=== PATIENT | female | born 1960 ===

== ENCOUNTER 2017-03-25 17:30 | Inpatient (IN) | payer OTHER ==
[2017-03-25 17:35] VITALS: BMI 24.4
[2017-03-25 18:04] LABS: HEMATOCRIT 35.3 % (36.0-48.0); MEAN CELL VOLUME 88.7 fl (80.0-105.0); MEAN CORPUSCULAR HEMOGLOBIN 29.9 pg (25.0-35.0); MEAN CORPUSCULAR HGB CONC 33.7 g/dl (31.0-37.0); MEAN PLATELET VOLUME 9.5 fl (7.0-11.0); PLATELET COUNT 289 10^3/uL (120.0-450.0); RED CELL DISTRIBUTION WIDTH 13.3 % (11.5-14.5); WHITE BLOOD COUNT 7.1 10^3/ul (4.5-11.0)
[2017-03-25 18:15] LABS: ALB/GLOB RATIO 1.4 (1.1-1.8); ALKALINE PHOSPHATASE 98 U/L (38-133); ALT/SGPT 36 U/L (7-56); AST/SGOT 30 U/L (15-39); BILIRUBIN,TOTAL 0.4 mg/dL (0.2-1.3); BLOOD UREA NITROGEN 19 mg/dL (7-21); CALCIUM 9.2 mg/dL (8.4-10.5); CARBON DIOXIDE 27 mmol/L (21-33); CHLORIDE 108 mmol/L (98-107); GFR AFRICAN-AMERICAN > 60; GLUCOSE,RANDOM 102 mg/dL (70-110); POTASSIUM 4.2 mmol/L (3.6-5.0); SODIUM 145 mmol/L (132-148)
[2017-03-25 18:26] LABS: TROPONIN I < 0.01 ng/mL
--- NOTE | 2017-03-25 18:32 | ED PDOC ---
Arrival/HPI - General Chief Complaint: Palpitations Time Seen by Provider: 03/25/17 17:32 Historian: Patient - History of Present Illness Narrative History of Present Illness (Text): 03/25/17 18:28 56-year-old female with a history of hypertension presents today with anterior chest pain and palpitations. Patient states she has been taking her blood pressure medication but her blood pressure has been high today. Patient states she also has been having headaches for many years but has been worsening recently. No medications have been taken for pain today. She denies abdominal pain. She is complaining of nausea no vomiting. Patient also states that she has diarrhea but only when she eats cheese or milk. She denies urinary symptoms. Denies back pain. Denies fevers or chills. Patient describes a sensation of racing heart as well as depression anterior chest. She is also complaining of pain to the hands bilaterally. Time/Duration: Other (this morning) Symptom Onset: Gradual Symptom Course: Worsening Quality: Pressure, Throbbing Severity Level: 4 Past Medical History - Provider Review Nursing Documentation Reviewed: Yes - Travel History Have you recently traveled outside [place] w/in the past 3 mons?: No - Infectious Disease Hx of Infectious Diseases: None - Tetanus Immunization Tetanus Immunization: Unknown - Cardiac Hx Hypertension: Yes - Psychiatric Hx Substance Use: No - Surgical History Hx Section: Yes (x2) - Anesthesia Hx Anesthesia: Yes Hx Anesthesia Reactions: No Hx Malignant Hyperthermia: No Family/Social History - Physician Review Nursing Documentation Reviewed: Yes Family/Social History: Unknown Family HX Smoking Status: Never Smoked Hx Alcohol Use: No Hx Substance Use: No Allergies/Home Meds Allergies/Adverse Reactions: Allergies No Known Allergies Allergy (Verified 03/25/17 17:35) Home Medications: Home Meds Medication Instructions Recorded Confirmed Losartan [Cozaar] 1 tab PO DAILY 03/25/17 03/25/17 Review of Systems - Review of Systems Constitutional: absent: Fatigue, Fevers Eyes: absent: Vision Changes, Photophobia, Eye Pain ENT: absent: Sinus Congestion Respiratory: absent: SOB, Cough Cardiovascular: Chest Pain, Palpitations. absent: Orthopnea, Syncope Gastrointestinal: Diarrhea, Nausea. absent: Abdominal Pain, Constipation, Vomiting Genitourinary Female: absent: Dysuria, Frequency Musculoskeletal: absent: Arthralgias, Back Pain, Neck Pain Skin: absent: Rash, Pruritis Neurological: Headache. absent: Dizziness, Focal Weakness, Gait Changes Psychiatric: absent: Anxiety, Depression, Suicidal Ideation Physical Exam Vital Signs Reviewed: Yes Vital Signs Temp Pulse Resp BP Pulse Ox 03/25/17 19:11 89 18 158/79 H 100 03/25/17 17:38 98.6 F 93 H 22 161/87 H 100 Temperature: Afebrile Blood Pressure: Hypertensive Pulse: Regular Respiratory Rate: Normal Appearance: Positive for: Well-Appearing, Non-Toxic, Comfortable Pain Distress: None Mental Status: Positive for: Alert and Oriented X 3 - Systems Exam Head: Present: Atraumatic Pupils: Present: PERRL Extroacular Muscles: Present: EOMI Conjunctiva: Present: Normal Mouth: Present: Moist Mucous Membranes Neck: Present: Normal Range of Motion, Trachea Midline. No: Meningeal Signs, MIDLINE TENDERNESS, Paraspinal Tenderness Respiratory/Chest: Present: Clear to Auscultation, Good Air Exchange. No: Respiratory Distress, Accessory Muscle Use Cardiovascular: Present: Regular Rate and Rhythm, Normal S1, S2. No: Tachycardic, Muffled Abdomen: No: Tenderness, Distention, Rebound, Guarding Upper Extremity: Present: Normal ROM Lower Extremity: Present: Normal ROM Neurological: Present: GCS=15, Speech Normal Skin: Present: Warm, Dry, Normal Color. No: Rashes Psychiatric: Present: Alert, Oriented x 3 Medical Decision Making ED Course and Treatment: 03/25/17 18:32 pt with chest pain and palpitations. Patient with headaches for many years. History of hypertension. Blood pressure is elevated in the emergency room. Patient nontoxic well-appearing no distress with stable vital signs cbc; wnl cmp; wnl trop: wnl dimer; wnl bnp; wnl ekg; normal sinus rhythm at 94 bpm normal axis normal intervals no ST elevations cxr: wnl zofran given for nausea tylenol given for headache. CT head; FINDINGS: HEMORRHAGE: No acute parenchymal, subarachnoid or extra-axial hemorrhage. BRAIN: There may be some minimal chronic periventricular white matter ischemic changes. Mild central volume loss. VENTRICLES: No obstructive hydrocephalus CALVARIUM: No acute calvarial fractures. PARANASAL SINUSES: Visualized paranasal sinuses are well-developed and currently well-aerated. MASTOID AIR CELLS: Unremarkable as visualized. No inflammatory changes. OTHER FINDINGS: None. IMPRESSION: No acute intracranial hemorrhage. Suspect minimal chronic white matter ischemic changes. Mild central volume loss. asa po pt reassessment; pt feeling slightly better; headache improved; denies palpitations or sob currently. case discussed with Dr. euceda; will Admit observational status to Tele for chest pain r/o acs. impression; chest pain Admit observational status to tele - Lab Interpretations Lab Results: 03/25/17 18:01 03/25/17 18:01 Lab Results 03/25/17 19:08: Urine Color Yellow, Urine Appearance Clear, Urine pH 7.0, Ur Specific [place] 1.020, Urine Protein Negative, Urine Glucose (UA) Negative, Urine Ketones Negative, Urine Blood Negative, Urine Nitrate Negative, Urine Bilirubin Negative, Urine Urobilinogen 0.2, Ur Leukocyte Esterase Negative 03/25/17 18:01: D-Dimer, Quantitative 0.25 03/25/17 18:01: NT-Pro-B Natriuret Pep 35.0 03/25/17 18:01: Sodium 145, Potassium 4.2, Chloride 108 H, Carbon Dioxide 27, Anion Gap 14, BUN 19, Creatinine 0.6, Est GFR ( Amer) > 60, Est GFR (Non- Af Amer) > 60, Random Glucose 102, Calcium 9.2, Total Bilirubin 0.4, AST 30, ALT 36, Alkaline Phosphatase 98, Lactate Dehydrogenase 561, Total Creatine Kinase 203, Troponin I < 0.01, Total Protein 7.0, Albumin 4.1, Globulin 2.9, Albumin/Globulin Ratio 1.4 03/25/17 18:01: WBC 7.1, RBC 3.98, Hgb 11.9 L, Hct 35.3 L, MCV 88.7, MCH 29.9, MCHC 33.7, RDW 13.3, Plt Count 289, MPV 9.5, Neutrophils % (Manual) 40 L, Lymphocytes % (Manual) 53 H, Atypical Lymphs % 1 H, Monocytes % (Manual) 6 - RAD Interpretation Radiology Orders: 03/25/17 17:57 CHEST PORTABLE [RAD] Stat 03/25/17 18:04 HEAD W/O CONTRAST [CT] Stat - Medication Orders Current Medication Orders: Discontinued Medications Acetaminophen (Tylenol 325mg Tab) 650 mg PO STAT STA Stop: 03/25/17 18:31 Last Admin: 03/25/17 19:02 Dose: 650 mg Ondansetron HCl (Zofran Inj) 4 mg IVP STAT STA Stop: 03/25/17 18:31 Last Admin: 03/25/17 19:02 Dose: 4 mg Disposition/Present on Arrival - Present on Arrival Any Indicators Present on Arrival: No History of DVT/PE: No History of Uncontrolled Diabetes: No Urinary Catheter: No History of Decub. Ulcer: No History Surgical Site Infection Following: None - Disposition Have Diagnosis and Disposition been Completed?: Yes Diagnosis: Chest pain, Palpitations, Hypertension Disposition: HOSPITALIZED Disposition Time: 20:35 Patient Plan: Observation Patient Problems: Current Active Problems Problem Status Onset Chest pain Acute Hypertension Acute Palpitations Acute Condition: FAIR Discharge Instructions (ExitCare): Chest Pain (ED) Forms: [facility] (Khmer)
[2017-03-25 18:36] LABS: ATYPICAL LYMPHOCYTE 1 % (0.0-0.0); NEUTROPHIL 40 % (50.0-70.0)
--- NOTE | 2017-03-25 18:57 | CT ---
PROCEDURE: CT scan of the brain dated 03/25/2017. HISTORY: Headache COMPARISON: None available. TECHNIQUE: Axial computed tomography images were obtained through the head/brain without intravenous contrast. Radiation dose: Total exam DLP = 725.84 mGy-cm. This CT exam was performed using one or more of the following dose reduction techniques: Automated exposure control, adjustment of the mA and/or kV according to patient size, and/or use of iterative reconstruction technique. FINDINGS: HEMORRHAGE: No acute parenchymal, subarachnoid or extra-axial hemorrhage. BRAIN: There may be some minimal chronic periventricular white matter ischemic changes. Mild central volume loss. VENTRICLES: No obstructive hydrocephalus CALVARIUM: No acute calvarial fractures. PARANASAL SINUSES: Visualized paranasal sinuses are well-developed and currently well-aerated. MASTOID AIR CELLS: Unremarkable as visualized. No inflammatory changes. OTHER FINDINGS: None. IMPRESSION: No acute intracranial hemorrhage. Suspect minimal chronic white matter ischemic changes. Mild central volume loss.
[2017-03-25 19:27] LABS: URINE BILIRUBIN NEGATIVE (NEGATIVE); URINE BLOOD NEGATIVE (NEGATIVE); URINE GLUCOSE (UA) NEGATIVE (NEGATIVE); URINE KETONE NEGATIVE (NEGATIVE); URINE LEUKOCYTE ESTERASE NEGATIVE Leu/uL (NEGATIVE); URINE PROTEIN NEGATIVE mg/dL (<30 mg/dL); URINE UROBILINOGEN 0.2 E.U./dL (<1 E.U./dL)
[2017-03-25 19:28] LABS: URINE APPEARANCE CLEAR (CLEAR); URINE COLOR YELLOW (YELLOW)
[2017-03-25 22:32] LABS: CHOLESTEROL 183 mg/dL (130-200)
--- NOTE | 2017-03-25 22:50 | CP.PCM.HP ---
Addendum entered and electronically signed by Nafisa Prajapati DO 03/25/17 23:48 : D-Dimer was negative Original Note: <Nafisa Prajapati - Last Filed: 03/25/17 23:34> History of Present Illness - History of Present Illness History of Present Illness: Nafisa Prajapati DO, PGY-1, Hospitalist Service, Dr. Roldan CC: chest pain, headache, left arm and left leg paresthesias HPI: 56 year old, Yoruba speaking female with a past medical history significant for hypertension and migraines as young girl who presents with complaints of a headache, chest pain, left arm and left leg paresthesias. At 1: 30 PM today Mrs. Tierra Parkinson was at [employer], reading, when she developed sudden, sharp mid sternal chest pain, SOB, blurry vision that lasted for 1-3 seconds. She further states that these symptoms were accompanied by a headache and pins and needles feeling in both her left arm and left leg. She also admits to nausea. She states has had headaches in the past, with associated left arm numbness and blurry vision, but never left leg numbness. The headache is still present during my encounter with her, the chest pain absent. She had not taken anything for any of her symptoms, but states the medications given the ED - aspirin, tylenol, and zofran- helped with her headache. On further questioning she states she has been getting chest pain with associated shortness of breath in the past month, and attributes this to poor blood pressure control with the Losartan 50 mg. She does not have a medical doctor, and gets her blood pressure medicine mailed in from [facility]. 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 She is a member of [employer]. [employer] del[employer]/bakery associate was utilized during this encounter: Krystina Keith [id number] Present on Admission - Present on Admission Any Indicators Present on Admission: No Review of Systems - Constitutional Constitutional: Headache. absent: Weight Loss, Weakness - EENT Eyes: Blurred Vision. absent: Discharge, Itchy Eyes, Requires Corrective Lenses Nose/Mouth/Throat: absent: Bleeding Gums, Dry Mouth, Dysphagia - Cardiovascular Cardiovascular: Chest Pain. absent: Leg Edema, Palpitations, Pedal Edema - Respiratory Respiratory: absent: Cough, Hemoptysis, Pain on Inspiration - Gastrointestinal Gastrointestinal: absent: Change in Stool Character, Dyspepsia, Excessive Flatus - Genitourinary Genitourinary: absent: Difficulty Urinating, Nocturia, Urinary Hesitance - Reproductive: Female Reproductive:Female: Menses Variable, Cycle > 4 Weeks Between Past Patient History - Infectious Disease Hx of Infectious Diseases: None - Tetanus Immunizations Tetanus Immunization: Unknown - Past Social History Smoking Status: Never Smoked - CARDIAC Hx Hypertension: Yes - PSYCHIATRIC Hx Substance Use: No - SURGICAL HISTORY Hx Section: Yes (x2) - ANESTHESIA Hx Anesthesia: Yes Hx Anesthesia Reactions: No Hx Malignant Hyperthermia: No Meds Allergies/Adverse Reactions: Allergies Allergy/AdvReac Type Severity Reaction Status Date / Time No Known Allergies Allergy Verified 03/25/17 17:35 Physical Exam - Constitutional Appears: Well, No Acute Distress - Head Exam Head Exam: ATRAUMATIC, NORMOCEPHALIC - Eye Exam Eye Exam: EOMI, Normal appearance, PERRL - ENT Exam ENT Exam: Mucous Membranes Moist, Normal Oropharynx Additional comments: Uvula and tongue midline, without fasciculation; posterior pharynx is with erythema or exudate - Neck Exam Neck exam: Positive for: Normal Inspection. Negative for: Meningismus, Tenderness - Respiratory Exam Respiratory Exam: absent: Accessory Muscle Use Additional comments: Crackles heard throughout right lung field - Cardiovascular Exam Cardiovascular Exam: RRR, +S1, +S2 Additional comments: extra beats auscultated (ectopy), no clicks, gallops, or murmurs appreciated - GI/Abdominal Exam GI & Abdominal Exam: Normal Bowel Sounds, Soft. absent: Rebound, Rigid - Extremities Exam Extremities exam: Positive for: normal capillary refill, normal inspection, pedal pulses present Additional comments: trace LE edema - Back Exam Back exam: NORMAL INSPECTION. absent: CVA tenderness (L), CVA tenderness (R) - Neurological Exam Neurological exam: Alert, CN II-XII Intact, Oriented x3 Additional comments: MSR testing in UE and LE graded 5/5, sensation is symmetric in face and body - Psychiatric Exam Psychiatric exam: Normal Affect, Normal Mood - Skin Skin Exam: Dry, Intact, Normal Color, Warm Results - Vital Signs Recent Vital Signs: Last Vital Signs Temp 98.6 F 03/25/17 17:38 Pulse 69 03/25/17 22:03 Resp 18 03/25/17 22:03 BP 149/62 03/25/17 22:03 Pulse Ox 99 03/25/17 22:03 - Labs Result Diagrams: 03/25/17 18:01 03/25/17 18:01 Labs: Laboratory Results - last 24 hr 03/25/17 03/25/17 03/25/17 18:01 18:01 18:01 WBC 7.1 RBC 3.98 Hgb 11.9 L Hct 35.3 L MCV 88.7 MCH 29.9 MCHC 33.7 RDW 13.3 Plt Count 289 MPV 9.5 Neutrophils % (Manual) 40 L Lymphocytes % (Manual) 53 H Atypical Lymphs % 1 H Monocytes % (Manual) 6 D-Dimer, Quantitative Sodium 145 Potassium 4.2 Chloride 108 H Carbon Dioxide 27 Anion Gap 14 BUN 19 Creatinine 0.6 Est GFR ( Amer) > 60 Est GFR (Non-Af Amer) > 60 Random Glucose 102 Calcium 9.2 Total Bilirubin 0.4 AST 30 ALT 36 Alkaline Phosphatase 98 Lactate Dehydrogenase 561 Total Creatine Kinase 203 Troponin I < 0.01 NT-Pro-B Natriuret Pep 35.0 Total Protein 7.0 Albumin 4.1 Globulin 2.9 Albumin/Globulin Ratio 1.4 Urine Color Urine Appearance Urine pH Ur Specific [place] Urine Protein Urine Glucose (UA) Urine Ketones Urine Blood Urine Nitrate Urine Bilirubin Urine Urobilinogen Ur Leukocyte Esterase 03/25/17 03/25/17 18:01 19:08 WBC RBC Hgb Hct MCV MCH MCHC RDW Plt Count MPV Neutrophils % (Manual) Lymphocytes % (Manual) Atypical Lymphs % Monocytes % (Manual) D-Dimer, Quantitative 0.25 Sodium Potassium Chloride Carbon Dioxide Anion Gap BUN Creatinine Est GFR ( Amer) Est GFR (Non-Af Amer) Random Glucose Calcium Total Bilirubin AST ALT Alkaline Phosphatase Lactate Dehydrogenase Total Creatine Kinase Troponin I NT-Pro-B Natriuret Pep Total Protein Albumin Globulin Albumin/Globulin Ratio Urine Color Yellow Urine Appearance Clear Urine pH 7.0 Ur Specific [place] 1.020 Urine Protein Negative Urine Glucose (UA) Negative Urine Ketones Negative Urine Blood Negative Urine Nitrate Negative Urine Bilirubin Negative Urine Urobilinogen 0.2 Ur Leukocyte Esterase Negative - EKG Data EKG Interpreted by: Myself EKG shows normal: Sinus rhythm Rate: Normal Assessment & Plan - Assessment and Plan (Free Text) Assessment: 56 year old female with a past medical history significant for hypertension and migraines who presents with CP, SOB, ROSENBAUM, left arm, left leg paresthesias. Plan: 1) CP R/O ACS - Initial EKG normal, will repeat one in AM - Initial troponin (-), will follow x 2 - Pro-BNP wnl - Initial CXR had poor quality, lending to poor interpretation. Patient is mobile, in no acute distress, thus ordered chest x-ray PA/lateral, will f/u - Cardiology consulted - TSH, HbA1c, lipid panel ordered - HHD - Vitals q4h 2) Headache with left arm and left leg paresthesia - CT head w/o contrast showed no acute intracranial hemorrhage. Suspect minimal chronic white matter ischemic changes. - ROSENBAUM could be secondary to poor control of blood pressure or a classic migraine given the patient's history of migraines in the past, concomitant nausea, transient blurry vision, and left sided paresthesias - Neurology consulted - Neurochecks PRN 3) Hypertension - Patient states BP is not well controlled on home Losartan 50 mg PO - Trial of 40 mg Inderal could be considered for hypertension that may also help with Headache. Case discussed with attending Dr. Roldan - Date & Time Date: 03/25/17 Time: 23:40 <Nano Roldan - Last Filed: 03/25/17 23:57> Results - Vital Signs Recent Vital Signs: Last Vital Signs Temp 97.7 F 03/25/17 23:08 Pulse 63 03/25/17 23:08 Resp 20 03/25/17 23:08 BP 142/90 03/25/17 23:08 Pulse Ox 99 03/25/17 22:03 - Labs Result Diagrams: 03/25/17 18:01 03/25/17 18:01 Attending/Attestation - Attestation I have personally seen and examined this patient.: Yes I have fully participated in the care of the patient.: Yes I have reviewed all pertinent clinical information: Yes Notes (Text): 03/25/17 23:56 Agree with history , physical examination, assessment and plan. Patient was seen in room # 787-84, nurse Lizbet helped me interpret. Following impressions should be recorded. Chest pain. Palpitations. Migraine. Left leg numbness. Hypertension. Borderline anemia. Lymphocytosis. Obesity. History C section. History bladder suspension procedure? Family history uterine cancer. Family history heart disease.
[2017-03-25] MEDS ORDERED: Pneumococcal 23-Valent Vaccine IM ONE (23:50)
[2017-03-26 00:55] VITALS: RESP 20
[2017-03-26] MEDS: Pantoprazole 40 mg EC Tab PO SCH (05:35)
--- NOTE | 2017-03-26 07:53 | RAD ---
HISTORY: cp COMPARISON: No prior. FINDINGS: LUNGS: No active pulmonary disease. PLEURA: No significant pleural effusion identified, no pneumothorax apparent. CARDIOVASCULAR: Normal. OSSEOUS STRUCTURES: No significant abnormalities. VISUALIZED UPPER ABDOMEN: Normal. OTHER FINDINGS: None. IMPRESSION: No active disease.
--- NOTE | 2017-03-26 10:39 | CP.PCM.CON ---
<Lucas Cuello - Last Filed: 03/26/17 10:51> History of Present Illness - History of Present Illness History of Present Illness: Neurology Consult Note for Dr. Brown Reason for Consult: Left arm and leg paresthesias, headache 56 y/o F with PMH of HTN and migraines presents to the ED for acute onset of chest pain along with left arm and leg paresthesias. Patient is pashto speaking. Pt states she suddenly began to feel left arm and leg paresthesias. Along with these symptoms, patient also began to develop chest pain, SOB, and blurry vision. Patient has had similar episodes in the past when having migraine like symptoms. She states she has been getting them frequently since she was a young girl. She currently does not take any medication for her migraines. Currently, patient states she has her same symptoms, but they are improved from the previous day. Denies SOB, N/V/D, fever, chills, changes in vision, dysuria, palpitations, weakness. PMH: Hypertension and Migraines PSH: 2 C-sections FMH: HTN Social Hx: Denies tobacco, alcohol, or illicit drug use Medications: Losartan Allergies: NKDA Review of Systems - Review of Systems Review of Systems: 13 point review of systems as per HPI, otherwise negative. Past Patient History - Infectious Disease Hx of Infectious Diseases: None - Tetanus Immunizations Tetanus Immunization: Unknown - Past Social History Smoking Status: Never Smoked - CARDIAC Hx Hypertension: Yes - PULMONARY Hx Respiratory Disorders: No - NEUROLOGICAL Hx Neurological Disorder: Yes Hx Migraine: Yes - HEENT Hx HEENT Problems: No - RENAL Hx Chronic Kidney Disease: No - ENDOCRINE/METABOLIC Hx Endocrine Disorders: No - HEMATOLOGICAL/ONCOLOGICAL Hx Blood Disorders: No - INTEGUMENTARY Hx Dermatological Problems: No - MUSCULOSKELETAL/RHEUMATOLOGICAL Hx Musculoskeletal Disorders: No Hx Falls: Yes - GASTROINTESTINAL Hx Gastrointestinal Disorders: No - GENITOURINARY/GYNECOLOGICAL Hx Genitourinary Disorders: No - PSYCHIATRIC Hx Substance Use: No - SURGICAL HISTORY Hx Section: Yes (x2) - ANESTHESIA Hx Anesthesia: Yes Hx Anesthesia Reactions: No Hx Malignant Hyperthermia: No Meds Allergies/Adverse Reactions: Allergies Allergy/AdvReac Type Severity Reaction Status Date / Time No Known Allergies Allergy Verified 03/25/17 17:35 - Medications Medications: Current Medications Acetaminophen (Tylenol 325mg Tab) 650 mg PO Q6H PRN PRN Reason: Headache Last Admin: 03/26/17 09:27 Dose: 650 mg Pantoprazole Sodium (Protonix Ec Tab) 40 mg PO 0600 YOLANDA Last Admin: 03/26/17 05:35 Dose: 40 mg Physical Exam - Constitutional Appears: Non-toxic, No Acute Distress - Head Exam Head Exam: ATRAUMATIC, NORMAL INSPECTION, NORMOCEPHALIC - Eye Exam Eye Exam: EOMI - ENT Exam ENT Exam: Mucous Membranes Moist - Respiratory Exam Respiratory Exam: Clear to Auscultation Bilateral, NORMAL BREATHING PATTERN. absent: Rales, Rhonchi, Wheezes - Cardiovascular Exam Cardiovascular Exam: RRR, +S1, +S2 - GI/Abdominal Exam GI & Abdominal Exam: Normal Bowel Sounds, Soft. absent: Tenderness - Extremities Exam Extremities exam: Negative for: calf tenderness, pedal edema - Neurological Exam Neurological exam: Alert, CN II-XII Intact, Oriented x3 Additional comments: Sensation intact throughout all extremities Muscle strength 5/5 in all extremities No pronator drift - Psychiatric Exam Psychiatric exam: Normal Affect, Normal Mood - Skin Skin Exam: Intact, Normal Color, Warm Results - Vital Signs Recent Vital Signs: Last Vital Signs Temp 97.9 F 03/26/17 05:55 Pulse 63 03/26/17 05:55 Resp 20 03/26/17 05:55 BP 155/91 H 03/26/17 05:55 Pulse Ox 98 03/26/17 05:55 - Labs Result Diagrams: 03/25/17 18:01 03/25/17 18:01 Labs: Laboratory Results - last 24 hr 03/26/17 02:15 Troponin I < 0.01 Assessment & Plan - Assessment and Plan (Free Text) Plan: 56 y/o F with PMH of HTN and migraines presents with complicated migraine in the setting of HTN. Patient does not consistently take any medication for her headaches but will be placed on new regimen to help control symptoms. In addition, patient will placed on migraine regimen to help control symptoms. Patient is neurologically stable at this time, will sign off. Plan: Topamax 25 mg qhs Fiorcet 1 tab q6h for acute onset of symptoms Gabapentin 100 mg qhs Maintain SBP 130-140 Khushboo, PGY-2 <Aubrey Brown - Last Filed: 03/26/17 14:07> Meds - Medications Medications: Current Medications Acetaminophen (Tylenol 325mg Tab) 650 mg PO Q6H PRN PRN Reason: Headache Last Admin: 03/26/17 09:27 Dose: 650 mg Acetaminophen/Butalbital/Caffeine (Fioricet) 1 tab PO Q4H PRN PRN Reason: Headache Last Admin: 03/26/17 11:19 Dose: 1 tab Enoxaparin Sodium (Lovenox) 40 mg SC DAILY YOLANDA PRN Reason: Protocol Gabapentin (Neurontin) 100 mg PO HS YOLANDA PRN Reason: Protocol Pantoprazole Sodium (Protonix Ec Tab) 40 mg PO 0600 YOLANDA Last Admin: 03/26/17 05:35 Dose: 40 mg Topiramate (Topamax) 25 mg PO HS YOLANDA PRN Reason: Protocol Results - Vital Signs Recent Vital Signs: Last Vital Signs Temp 97.9 F 03/26/17 12:00 Pulse 65 03/26/17 12:00 Resp 20 03/26/17 12:00 BP 135/80 03/26/17 12:00 Pulse Ox 98 03/26/17 05:55 - Labs Result Diagrams: 03/25/17 18:01 03/25/17 18:01 Labs: Laboratory Results - last 24 hr 03/26/17 03/26/17 03/26/17 02:15 11:49 11:49 D-Dimer, Quantitative 0.24 Troponin I < 0.01 < 0.01 Attending/Attestation - Attestation I have personally seen and examined this patient.: Yes I have fully participated in the care of the patient.: Yes I have reviewed all pertinent clinical information: Yes
[2017-03-26] MEDS ORDERED: Apap-Butalbital-Caffeine 325-50-40mg Tab PO PRN (11:02)
[2017-03-26] MEDS: Enoxaparin 40 mg Syringe SC SCH (14:36)
--- NOTE | 2017-03-26 16:02 | CP.PCM.PN ---
<Rosa Devlin - Last Filed: 03/26/17 16:20> Subjective - Date & Time of Evaluation Date of Evaluation: 03/26/17 Time of Evaluation: 07:35 - Subjective Subjective: Rosa Devlin DO, PGY-1, Internal Medicine, Hospitalist Service Patient seen and examined at bedside. Per nursing no acute events overnight. Patient reports still having a headache. Chest pain has improved but still there. Also complaining of L leg pain. Denies any dizziness, visual changes, palpitations, sob, abdominal pain, urinary symptoms. Objective - Vital Signs/Intake and Output Vital Signs (last 24 hours): Temp Pulse Resp BP Pulse Ox 97.9 F 75 20 135/80 98 03/26/17 12:00 03/26/17 14:00 03/26/17 12:00 03/26/17 12:00 03/26/17 05:55 - Medications Medications: Current Medications Acetaminophen (Tylenol 325mg Tab) 650 mg PO Q6H PRN PRN Reason: Headache Last Admin: 03/26/17 09:27 Dose: 650 mg Acetaminophen/Butalbital/Caffeine (Fioricet) 1 tab PO Q4H PRN PRN Reason: Headache Last Admin: 03/26/17 11:19 Dose: 1 tab Enoxaparin Sodium (Lovenox) 40 mg SC DAILY YOLANDA PRN Reason: Protocol Last Admin: 03/26/17 14:36 Dose: Not Given Gabapentin (Neurontin) 100 mg PO HS YOLANDA PRN Reason: Protocol Pantoprazole Sodium (Protonix Ec Tab) 40 mg PO 0600 YOLANDA Last Admin: 03/26/17 05:35 Dose: 40 mg Topiramate (Topamax) 25 mg PO HS YOLANDA PRN Reason: Protocol - Constitutional Appears: Well, No Acute Distress - Head Exam Head Exam: ATRAUMATIC, NORMAL INSPECTION - Eye Exam Eye Exam: EOMI, Normal appearance Pupil Exam: NORMAL ACCOMODATION - ENT Exam ENT Exam: Mucous Membranes Moist - Neck Exam Neck Exam: Tenderness Additional comments: Paraspinal tenderness - Respiratory Exam Respiratory Exam: Clear to Ausculation Bilateral, NORMAL BREATHING PATTERN. absent: Rales, Rhonchi, Wheezes - Cardiovascular Exam Cardiovascular Exam: REGULAR RHYTHM, +S1, +S2. absent: Diastolic murmur, JVD, Murmur - GI/Abdominal Exam GI & Abdominal Exam: Soft, Tenderness, Normal Bowel Sounds. absent: Guarding, Rigid - Rectal Exam Rectal Exam: Deferred - Extremities Exam Additional comments: Straight leg raise negative - Back Exam Back Exam: NORMAL INSPECTION - Neurological Exam Neurological Exam: Alert, Awake, Normal Gait, Oriented x3 - Psychiatric Exam Psychiatric exam: Normal Affect, Normal Mood - Skin Skin Exam: Dry, Normal Color, Warm Assessment and Plan - Assessment and Plan (Free Text) Assessment: 56 year old female with a past medical history significant for hypertension and migraines who presents with Chest pain, Headache, left arm, left leg paresthesias. Plan: 1) Chest Pain R/O ACS - Stable, afebrile - Monitor on telemetry - EKG NSR x 2 - Troponins negative x 3 - D Dimer negative - Echo ordered - Cardiology consulted, f/u recommendations 2) Headache with left arm and left leg paresthesia - CT head w/o contrast showed no acute intracranial hemorrhage. Suspect minimal chronic white matter ischemic changes. - Will start Topamax 25mg QHS, Fiorcet - Will start Gabapentin 100mg QHS - Neurology consulted, f/u recommendations 3) Hypertension - Patient states BP is not well controlled on home Losartan 50 mg PO - Will continue to monitor at this time as patient is currently normatensive 4) Left Leg pain -Patient with hypertonic muscles in LLE, straight leg raise negative -Leg pain likely musculoskeletal -Spent 15 minutes demonstrating stretching techniques -Flexeril 5mg TID 5) GI/DVT ppx -Protonix -Lovenox <Uriel Leary - Last Filed: 03/27/17 08:02> Objective - Vital Signs/Intake and Output Vital Signs (last 24 hours): Temp Pulse Resp BP Pulse Ox 97.5 F L 72 20 106/65 97 03/27/17 06:00 03/27/17 06:00 03/27/17 06:00 03/27/17 06:00 03/27/17 06:00 Intake and Output: 03/27/17 03/27/17 06:59 18:59 Intake Total 0 Output Total 0 Balance 0 - Medications Medications: Current Medications Acetaminophen/Butalbital/Caffeine (Fioricet) 1 tab PO Q4H PRN PRN Reason: Headache Last Admin: 03/26/17 11:19 Dose: 1 tab Cyclobenzaprine HCl (Flexeril) 5 mg PO TID [facility] Last Admin: 03/26/17 17:19 Dose: 5 mg Enoxaparin Sodium (Lovenox) 40 mg SC DAILY YOLANDA PRN Reason: Protocol Last Admin: 03/26/17 14:36 Dose: Not Given Gabapentin (Neurontin) 100 mg PO HS YOLANDA PRN Reason: Protocol Last Admin: 03/26/17 21:52 Dose: 100 mg Pantoprazole Sodium (Protonix Ec Tab) 40 mg PO 0600 YOLANDA Last Admin: 03/27/17 06:03 Dose: 40 mg Topiramate (Topamax) 25 mg PO HS YOLANDA PRN Reason: Protocol Last Admin: 03/26/17 21:53 Dose: 25 mg Attending/Attestation - Attestation I have personally seen and examined this patient.: Yes I have fully participated in the care of the patient.: Yes I have reviewed all pertinent clinical information, including history, physical exam and plan: Yes Notes (Text): I have seen and examined patient at bedside. Briefly this is 56 year old female with history of HTN, migraines who came for evaluation of chest pain, headache, left arm and left leg parasthesias. Chest pain has now resolved. Patient appears anxious. Serial cardiac enzymes and EKG is within normal limits. D dimer negative. Echo and LE US still pending. CT head showed minimal chronic white matter ischemic changes. Neuro consult appreciated. Start topamax and gabapentin. Upon discharge patient will follow up with PMD of choice. Dr Uriel Leary
--- NOTE | 2017-03-26 17:45 | CARD ---
APPROVED REPORT EXAM: Two-dimensional and M-mode echocardiogram with Doppler and color Doppler. INDICATION Chest Pain Palpitations 2D DIMENSIONS Left Atrium (2D)3.9 (1.6-4.0cm)IVSd0.9 (0.7-1.1cm) LVDd4.1 (3.9-5.9cm)PWd1.1 (0.7-1.1cm) LVDs2.7 (2.5-4.0cm)FS (%) 35.1 % LVEF (%)64.9 (>50%) M-Mode DIMENSIONS Aortic Root2.90 (2.2-3.7cm)Aortic Cusp Exc.1.40 (1.5-2.0cm) Aortic Valve AoV Peak Nuwxempk291.0cm/Freya Peak GR.10mmHg Mitral Valve MV E Wmcqvfzb207.0cm/sMV A Lkqoshkd03.0cm/sE/A ratio1.3 TDI Lateral E' Peak V9.16cm/sMedial E' Peak V8.09cm/sE/Lateral E'10.9 E/Medial E'12.4 Pulmonary Valve PV Peak Imrqmual45.3cm/sPV Peak Grad.1mmHg Tricuspid Valve TR Peak Tbbqevfi916hm/sRAP AIWXXTHL46tkVcEI Peak Gr.32mmHg [id number] LEFT VENTRICLE The left ventricle is normal size. There is normal left ventricular wall thickness. The left ventricular function is normal. The left ventricular ejection fraction is within the normal range. There is normal LV segmental wall motion. The left ventricular diastolic function is normal. RIGHT VENTRICLE The right ventricle is normal size. There is normal right ventricular wall thickness. The right ventricular systolic function is normal. ATRIA The left atrium size is normal. The right atrium size is normal. AORTIC VALVE The aortic valve is normal in structure. No aortic regurgitation is present. There is no aortic valvular stenosis. MITRAL VALVE The mitral valve is normal in structure. There is no mitral valve regurgitation noted. TRICUSPID VALVE There is mild tricuspid regurgitation. There is mild pulmonary hypertension. GREAT VESSELS The aortic root is normal in size. PERICARDIAL EFFUSION There is no pericardial effusion. <Conclusion> The left ventricle is normal size. There is normal left ventricular wall thickness. The left ventricular function is normal. The left ventricular ejection fraction is within the normal range. There is normal LV segmental wall motion. There is mild tricuspid regurgitation. There is mild pulmonary hypertension.
--- NOTE | 2017-03-26 18:32 | US ---
HISTORY: Leg pain and swelling. Evaluate for DVT PHYSICIAN(S): Luis Manuel Fam MD. TECHNIQUE: Duplex sonography and color-flow Doppler with graded compression were used to evaluate the deep venous systems of both lower extremities. FINDINGS: The visualized deep venous systems of both lower extremities are sonographically normal and compressible. Normal wave forms and augmentation are seen. There is no sonographic evidence for deep venous thrombosis in the visualized segments of both lower extremities. IMPRESSION: No sonographic evidence for deep venous thrombosis in the visualized segments of both lower extremities.
--- NOTE | 2017-03-26 19:56 | CARD ---
APPROVED REPORT EKG Measurement Heart [id number] <Conclusion> Normal sinus rhythm Normal ECG
--- NOTE | 2017-03-26 20:05 | CARD ---
APPROVED REPORT EKG Measurement Heart [id number] <Conclusion> Normal sinus rhythm Normal ECG
--- NOTE | 2017-03-26 22:10 | CON ---
REASON FOR CONSULTATION: Palpitation. HISTORY OF PRESENT ILLNESS: The patient is 56-year-old female originally from [facility] who has a history of hypertension and was taking blood pressure medications from [facility] for the past 2 years. The patient does not recall the name of the medicine but she takes 50 mg. She presents because of palpitation and dizziness as well as left shoulder pain radiating to the chest. The patient is unaware of any prior cardiac history or thyroid problem. The patient did report some pain and numbness in the left leg. SOCIAL HISTORY: The patient is a nonsmoker, nondrinker. MEDICATIONS: Fioricet 1 tablet q.4 hours, Neurontin 100 mg at bedtime, Protonix 40 mg p.o. once a day, Topamax 25 mg at bedtime. PHYSICAL EXAMINATION: GENERAL: The patient is a middle-aged female who does not appear to be in any distress. VITAL SIGNS: Blood pressure 155/91, heart rate 63, temperature 97.9, respirations 20. HEENT: Normocephalic. CHEST: Clear. HEART: S1 and S2 regular. ABDOMEN: Soft. EXTREMITIES: No edema. LABORATORY DATA: Hemoglobin and hematocrit 11.9 and 35.3, white count and platelet count are within normal limits. SMA-7 is within normal limits except for chloride of 108. Two sets of troponins are negative. Triglycerides are elevated at 358. Total cholesterol, LDL and HDL cholesterol are within normal limit. TSH is within normal limit. D-dimer is within normal limits twice. EKG revealed normal sinus. Head CT scan without contrast, no acute intracranial abnormality. ASSESSMENT: 1. Chest pain, myocardial infraction is ruled out. 2. History of palpitation. TSH level is within normal limits. 3. Hypertension. RECOMMENDATIONS: Continue current Protonix, gabapentin, Topamax, Fioricet and p.r.n. Tylenol. Start Lovenox at 30 mg once a day. Obtain venous Doppler lower extremities. Obtain an echocardiogram. Sandor Morton MD
[2017-03-27] MEDS: Pantoprazole 40 mg EC Tab PO SCH (06:03)
[2017-03-27 06:29] VITALS: O2SAT 97
[2017-03-27 07:48] LABS: HEMATOCRIT 39.2 % (36.0-48.0); MEAN CELL VOLUME 87.7 fl (80.0-105.0); MEAN CORPUSCULAR HEMOGLOBIN 29.1 pg (25.0-35.0); MEAN CORPUSCULAR HGB CONC 33.2 g/dl (31.0-37.0); MEAN PLATELET VOLUME 9.4 fl (7.0-11.0); RED CELL DISTRIBUTION WIDTH 12.9 % (11.5-14.5); WHITE BLOOD COUNT 6.7 10^3/ul (4.5-11.0)
[2017-03-27 08:05] LABS: BLOOD UREA NITROGEN 14 mg/dL (7-21); CALCIUM 9.2 mg/dL (8.4-10.5); CARBON DIOXIDE 29 mmol/L (21-33); CHLORIDE 104 mmol/L (98-107); GFR AFRICAN-AMERICAN > 60; GLUCOSE,RANDOM 93 mg/dL (70-110); POTASSIUM 5.2 mmol/L (3.6-5.0); SODIUM 143 mmol/L (132-148)
[2017-03-27] MEDS: Enoxaparin 40 mg Syringe SC SCH (10:30)
--- NOTE | 2017-03-27 11:34 | CP.PCM.PN ---
<Lucas Cuello - Last Filed: 03/27/17 11:30> Subjective - Date & Time of Evaluation Date of Evaluation: 03/27/17 Time of Evaluation: 11:30 - Subjective Subjective: Neurology Progress Note for Dr. Brown Pt seen and examined at bedside. Pt doing well overnight with no acute events. Patient still complaints of left sided pain along with mild headache. Denies CP , SOB, N/V/D, syncope, lightheadedness. Objective - Vital Signs/Intake and Output Vital Signs (last 24 hours): Temp Pulse Resp BP Pulse Ox 97.5 F L 72 20 106/65 97 03/27/17 06:00 03/27/17 06:00 03/27/17 06:00 03/27/17 06:00 03/27/17 06:00 Intake and Output: 03/27/17 03/27/17 06:59 18:59 Intake Total 0 Output Total 0 Balance 0 - Medications Medications: Current Medications Acetaminophen/Butalbital/Caffeine (Fioricet) 1 tab PO Q4H PRN PRN Reason: Headache Last Admin: 03/26/17 11:19 Dose: 1 tab Cyclobenzaprine HCl (Flexeril) 5 mg PO TID [facility] Last Admin: 03/27/17 10:30 Dose: 5 mg Enoxaparin Sodium (Lovenox) 40 mg SC DAILY YOLANDA PRN Reason: Protocol Last Admin: 03/27/17 10:30 Dose: 40 mg Gabapentin (Neurontin) 100 mg PO HS YOLANDA PRN Reason: Protocol Last Admin: 03/26/17 21:52 Dose: 100 mg Pantoprazole Sodium (Protonix Ec Tab) 40 mg PO 0600 YOLANDA Last Admin: 03/27/17 06:03 Dose: 40 mg Topiramate (Topamax) 25 mg PO HS YOLANDA PRN Reason: Protocol Last Admin: 03/26/17 21:53 Dose: 25 mg - Labs Labs: 03/27/17 07:30 03/27/17 07:30 - Constitutional Appears: Non-toxic, No Acute Distress - Head Exam Head Exam: ATRAUMATIC, NORMAL INSPECTION, NORMOCEPHALIC - ENT Exam ENT Exam: Mucous Membranes Moist - Respiratory Exam Respiratory Exam: Clear to Ausculation Bilateral, NORMAL BREATHING PATTERN. absent: Rales, Rhonchi, Wheezes - Cardiovascular Exam Cardiovascular Exam: RRR, +S1, +S2 - GI/Abdominal Exam GI & Abdominal Exam: Soft, Normal Bowel Sounds. absent: Tenderness - Extremities Exam Extremities Exam: Normal Inspection - Neurological Exam Neurological Exam: Alert, Awake, Oriented x3 Neuro motor strength exam: Left Upper Extremity: 5, Right Upper Extremity: 5, Left Lower Extremity: 5, Right Lower Extremity: 5 - Psychiatric Exam Psychiatric exam: Normal Affect, Normal Mood - Skin Skin Exam: Intact, Normal Color, Warm Assessment and Plan - Assessment and Plan (Free Text) Plan: 56 y/o F with PMH of HTN and migraines presents with complicated migraine in the setting of HTN. Patient had Topamax and Fiorcet added to regimen yesterday. Patient will need to control BP in which will help alleviate headaches. Patient can follow up in outpatient neurology clinic for headaches. Patient is neurologically stable at this time, will sign off. Plan: Continue Topamax 25 mg qhs Continue Fiorcet 1 tab q6h for acute onset of symptoms Continue Gabapentin 100 mg qhs Maintain SBP 130-140 Follow up in outpatient neurology clinic within 1 month [facility] PGY-2 <Aubrey Brown - Last Filed: 03/31/17 11:04> Objective - Vital Signs/Intake and Output Vital Signs (last 24 hours): Temp Pulse Resp BP Pulse Ox 98.3 F 71 20 152/89 H 97 03/27/17 18:00 03/27/17 18:00 03/27/17 18:00 03/27/17 18:00 03/27/17 06:00 - Labs Labs: 03/27/17 07:30 03/27/17 07:30 Attending/Attestation - Attestation I have personally seen and examined this patient.: Yes I have fully participated in the care of the patient.: Yes I have reviewed all pertinent clinical information, including history, physical exam and plan: Yes
--- NOTE | 2017-03-27 15:36 | CP.PCM.DIS ---
<Rosa Devlin - Last Filed: 03/27/17 16:27> Provider - Provider Date of Admission: 03/26/17 14:51 Attending physician: Uriel Leary MD Consults: Cardiology: Praveen Neurology: Stephanie Time Spent in preparation of Discharge (in minutes): 32 Hospital Course - Lab Results Lab Results: Most Recent Lab Values WBC 6.7 10^3/ul (4.5-11.0) 03/27/17 07:30 RBC 4.47 10^6/uL (3.5-6.1) 03/27/17 07:30 Hgb 13.0 g/dL (12.0-16.0) 03/27/17 07:30 Hct 39.2 % (36.0-48.0) 03/27/17 07:30 MCV 87.7 fl (80.0-105.0) 03/27/17 07:30 MCH 29.1 pg (25.0-35.0) 03/27/17 07:30 MCHC 33.2 g/dl (31.0-37.0) 03/27/17 07:30 RDW 12.9 % (11.5-14.5) 03/27/17 07:30 Plt Count 301 10^3/uL (120.0-450.0) 03/27/17 07:30 MPV 9.4 fl (7.0-11.0) 03/27/17 07:30 Neutrophils % (Manual) 40 % (50.0-70.0) L 03/25/17 18:01 Lymphocytes % (Manual) 53 % (22.0-35.0) H 03/25/17 18:01 Atypical Lymphs % 1 % (0.0-0.0) H 03/25/17 18:01 Monocytes % (Manual) 6 % (1.0-6.0) 03/25/17 18:01 D-Dimer, Quantitative 0.24 mg/L FEU (0-0.50) 03/26/17 11:49 Sodium 143 mmol/L (132-148) 03/27/17 07:30 Potassium 5.2 mmol/L (3.6-5.0) H 03/27/17 07:30 Chloride 104 mmol/L (98-107) 03/27/17 07:30 Carbon Dioxide 29 mmol/L (21-33) 03/27/17 07:30 Anion Gap 15 (10-20) 03/27/17 07:30 BUN 14 mg/dL (7-21) 03/27/17 07:30 Creatinine 0.7 mg/dL (0.5-1.4) 03/27/17 07:30 Est GFR ( Amer) > 60 03/27/17 07:30 Est GFR (Non-Af Amer) > 60 03/27/17 07:30 Random Glucose 93 mg/dL (70-110) 03/27/17 07:30 Hemoglobin A1c 5.4 % (4.2-6.5) 03/25/17 18:01 Calcium 9.2 mg/dL (8.4-10.5) 03/27/17 07:30 Total Bilirubin 0.4 mg/dL (0.2-1.3) 03/25/17 18:01 AST 30 U/L (15-39) 03/25/17 18:01 ALT 36 U/L (7-56) 03/25/17 18:01 Alkaline Phosphatase 98 U/L (38-133) 03/25/17 18:01 Lactate Dehydrogenase 561 U/L (333-699) 03/25/17 18:01 Total Creatine Kinase 203 U/L (35-230) 03/25/17 18:01 Troponin I < 0.01 ng/mL 03/26/17 11:49 NT-Pro-B Natriuret Pep 35.0 pg/mL (0-450) 03/25/17 18:01 Total Protein 7.0 g/dL (5.8-8.3) 03/25/17 18:01 Albumin 4.1 g/dL (3.0-4.8) 03/25/17 18:01 Globulin 2.9 gm/dL 03/25/17 18:01 Albumin/Globulin Ratio 1.4 (1.1-1.8) 03/25/17 18:01 Triglycerides 358 mg/dL (35-160) H 03/25/17 18:01 Cholesterol 183 mg/dL (130-200) 03/25/17 18:01 LDL Cholesterol Direct 100 mg/dL (0-129) 03/25/17 18:01 HDL Cholesterol 39 mg/dL (29-60) 03/25/17 18:01 TSH 3rd Generation 1.17 mIU/mL (0.46-4.68) 03/25/17 18:01 Urine Color Yellow (YELLOW) 03/25/17 19:08 Urine Appearance Clear (CLEAR) 03/25/17 19:08 Urine pH 7.0 (4.7-8.0) 03/25/17 19:08 Ur Specific [place] 1.020 (1.005-1.035) 03/25/17 19:08 Urine Protein Negative mg/dL (<30 mg/dL) 03/25/17 19:08 Urine Glucose (UA) Negative mg/dL (NEGATIVE) 03/25/17 19:08 Urine Ketones Negative mg/dL (NEGATIVE) 03/25/17 19:08 Urine Blood Negative (NEGATIVE) 03/25/17 19:08 Urine Nitrate Negative (NEGATIVE) 03/25/17 19:08 Urine Bilirubin Negative (NEGATIVE) 03/25/17 19:08 Urine Urobilinogen 0.2 E.U./dL (<1 E.U./dL) 03/25/17 19:08 Ur Leukocyte Esterase Negative Thanh/uL (NEGATIVE) 03/25/17 19:08 - Hospital Course Hospital Course: 56 year old, [place]ovan speaking female with a past medical history significant for hypertension and migraines as young girl who presents with complaints of a headache, chest pain, left arm and left leg paresthesias. At 1:30 PM today Mrs. Tierra Parkinson was at [employer], reading, when she developed sudden, sharp mid sternal chest pain, SOB, blurry vision that lasted for 1-3 seconds. She further states that these symptoms were accompanied by a headache and pins and needles feeling in both her left arm and left leg. She also admits to nausea. She states has had headaches in the past, with associated left arm numbness and blurry vision, but never left leg numbness. The headache is still present during my encounter with her, the chest pain absent. She had not taken anything for any of her symptoms, but states the medications given the ED - aspirin, tylenol, and zofran- helped with her headache. On further questioning she states she has been getting chest pain with associated shortness of breath in the past month. Patient was admitted and monitored on telemetry. EKG showed NSR x 2. Troponins were negative x 3. Echo was performed and was normal. Cardiology was consulted and on the case. ACS was ruled out. Patient was complaining of headaches with left leg pain. Head CT showed no acute intracranial pathology. Neurology was consulted and on the case. Started the patient on Fiorecet, Gabapentin and Topamax. Patient instructed to follow up with Neurology clinic within 1 month. Leg pain likely musculoskeletal, patient was started on Flexeril. Spent 20 minutes showing the patient different stretching techniques that would help alleviate symptoms, instructed to continue these stretches at home. For elevated triglycerides, patient instructed to modify diet and exercise. On day of discharge, patient was complaining of dizziness and headache. Carotid dopplers were ordered, final read pending. Flexeril was discontinued. Patient was also evaluated by physical therapy. Patient symptoms improved. Prescription for motrin was given for pain. Patient was medically stable on day of discharge. Instructed to follow up with PMD within 1 week. All questions and concerns were addressed. Discharge Exam - Head Exam Head Exam: ATRAUMATIC, NORMAL INSPECTION, NORMOCEPHALIC - Eye Exam Eye Exam: EOMI, Normal appearance Pupil Exam: NORMAL ACCOMODATION - ENT Exam ENT Exam: Mucous Membranes Moist - Neck Exam Neck exam: Full Rom - Respiratory Exam Respiratory Exam: Clear to PA & Lateral, NORMAL BREATHING PATTERN, UNREMARKABLE. absent: Rales, Rhonchi, Wheezes - Cardiovascular Exam Cardiovascular Exam: REGULAR RHYTHM, +S1, +S2. absent: Systolic Murmur - GI/Abdominal Exam GI & Abdominal Exam: Normal Bowel Sounds, Soft. absent: Guarding, Rebound, Rigid, Tenderness - Extremities Exam Extremities exam: normal inspection, pedal pulses present - Back Exam Back exam: NORMAL INSPECTION - Neurological Exam Neurological exam: Alert, CN II-XII Intact, Oriented x3 - Psychiatric Exam Psychiatric exam: Normal Affect, Normal Mood - Skin Skin Exam: Dry, Normal Color, Warm Discharge Plan - Discharge Medications Prescriptions: Acetaminophen/Butalbital/Caf [Fioricet] 1 tab PO Q4H PRN #12 tab PRN Reason: Headache Gabapentin [Neurontin] 100 mg PO HS #12 cap Ibuprofen [Motrin] 600 mg PO Q6H PRN #12 tab PRN Reason: Pain, Moderate (4-7) Topiramate [Topamax] 25 mg PO HS #12 tab - Follow Up Plan Condition: FAIR Disposition: HOME/ ROUTINE Instructions: Chest Pain (DC), Migraine Headache (DC) Additional Instructions: Patient is clear for discharge home. Patient to continue medications as prescribed. Motrin prn pain. Instructed to follow up with PMD within 1 week. Follow up with Neurology clinic within 1 month. For elevated triglycerides, patient should modify diet and exercise. <Uriel Leary - Last Filed: 03/28/17 10:22> Provider - Provider Date of Admission: 03/26/17 14:51 Attending physician: Uriel Leary MD Hospital Course - Lab Results Lab Results: Most Recent Lab Values WBC 6.7 10^3/ul (4.5-11.0) 03/27/17 07:30 RBC 4.47 10^6/uL (3.5-6.1) 03/27/17 07:30 Hgb 13.0 g/dL (12.0-16.0) 03/27/17 07:30 Hct 39.2 % (36.0-48.0) 03/27/17 07:30 MCV 87.7 fl (80.0-105.0) 03/27/17 07:30 MCH 29.1 pg (25.0-35.0) 03/27/17 07:30 MCHC 33.2 g/dl (31.0-37.0) 03/27/17 07:30 RDW 12.9 % (11.5-14.5) 03/27/17 07:30 Plt Count 301 10^3/uL (120.0-450.0) 03/27/17 07:30 MPV 9.4 fl (7.0-11.0) 03/27/17 07:30 Neutrophils % (Manual) 40 % (50.0-70.0) L 03/25/17 18:01 Lymphocytes % (Manual) 53 % (22.0-35.0) H 03/25/17 18:01 Atypical Lymphs % 1 % (0.0-0.0) H 03/25/17 18:01 Monocytes % (Manual) 6 % (1.0-6.0) 03/25/17 18:01 D-Dimer, Quantitative 0.24 mg/L FEU (0-0.50) 03/26/17 11:49 Sodium 143 mmol/L (132-148) 03/27/17 07:30 Potassium 5.2 mmol/L (3.6-5.0) H 03/27/17 07:30 Chloride 104 mmol/L (98-107) 03/27/17 07:30 Carbon Dioxide 29 mmol/L (21-33) 03/27/17 07:30 Anion Gap 15 (10-20) 03/27/17 07:30 BUN 14 mg/dL (7-21) 03/27/17 07:30 Creatinine 0.7 mg/dL (0.5-1.4) 03/27/17 07:30 Est GFR ( Amer) > 60 03/27/17 07:30 Est GFR (Non-Af Amer) > 60 03/27/17 07:30 Random Glucose 93 mg/dL (70-110) 03/27/17 07:30 Hemoglobin A1c 5.4 % (4.2-6.5) 03/25/17 18:01 Calcium 9.2 mg/dL (8.4-10.5) 03/27/17 07:30 Total Bilirubin 0.4 mg/dL (0.2-1.3) 03/25/17 18:01 AST 30 U/L (15-39) 03/25/17 18:01 ALT 36 U/L (7-56) 03/25/17 18:01 Alkaline Phosphatase 98 U/L (38-133) 03/25/17 18:01 Lactate Dehydrogenase 561 U/L (333-699) 03/25/17 18:01 Total Creatine Kinase 203 U/L (35-230) 03/25/17 18:01 Troponin I < 0.01 ng/mL 03/26/17 11:49 NT-Pro-B Natriuret Pep 35.0 pg/mL (0-450) 03/25/17 18:01 Total Protein 7.0 g/dL (5.8-8.3) 03/25/17 18:01 Albumin 4.1 g/dL (3.0-4.8) 03/25/17 18:01 Globulin 2.9 gm/dL 03/25/17 18:01 Albumin/Globulin Ratio 1.4 (1.1-1.8) 03/25/17 18:01 Triglycerides 358 mg/dL (35-160) H 03/25/17 18:01 Cholesterol 183 mg/dL (130-200) 03/25/17 18:01 LDL Cholesterol Direct 100 mg/dL (0-129) 03/25/17 18:01 HDL Cholesterol 39 mg/dL (29-60) 03/25/17 18:01 TSH 3rd Generation 1.17 mIU/mL (0.46-4.68) 03/25/17 18:01 Urine Color Yellow (YELLOW) 03/25/17 19:08 Urine Appearance Clear (CLEAR) 03/25/17 19:08 Urine pH 7.0 (4.7-8.0) 03/25/17 19:08 Ur Specific [place] 1.020 (1.005-1.035) 03/25/17 19:08 Urine Protein Negative mg/dL (<30 mg/dL) 03/25/17 19:08 Urine Glucose (UA) Negative mg/dL (NEGATIVE) 03/25/17 19:08 Urine Ketones Negative mg/dL (NEGATIVE) 03/25/17 19:08 Urine Blood Negative (NEGATIVE) 03/25/17 19:08 Urine Nitrate Negative (NEGATIVE) 03/25/17 19:08 Urine Bilirubin Negative (NEGATIVE) 03/25/17 19:08 Urine Urobilinogen 0.2 E.U./dL (<1 E.U./dL) 03/25/17 19:08 Ur Leukocyte Esterase Negative Thanh/uL (NEGATIVE) 03/25/17 19:08 Attending/Attestation - Attestation I have personally seen and examined this patient.: Yes I have fully participated in the care of the patient.: Yes I have reviewed all pertinent clinical information, including history, physical exam and plan: Yes Notes (Text): I have seen and examined patient at bedside. Briefly this is 56 year old female with history of HTN, migraines who came for evaluation of chest pain, headache, left arm and left leg paresthesias. Chest pain has now resolved. Patient appears anxious. Serial cardiac enzymes and EKG is within normal limits. D dimer negative. Echo and LE US are normal. CT head showed minimal chronic white matter ischemic changes. Neuro consult appreciated. Patient was started on topamax and gabapentin. PT recommended outpatient PT. Patient was advised about that. Upon discharge patient will follow up with PMD of choice. Dr Uriel Leary
--- NOTE | 2017-03-27 18:04 | US ---
PROCEDURE: Bilateral carotid artery duplex ultrasound HISTORY: Carotid stenosis dizziness PHYSICIAN(S): Luis Manuel Fam MD. TECHNIQUE: Duplex sonography and color-flow Doppler were used to evaluate the carotid bifurcations and limited segments of the vertebral arteries bilaterally. FINDINGS: There is mild smooth hypoechoic plaque noted at the carotid bifurcations bilaterally. The peak systolic velocity in the proximal right internal carotid artery is 72 cm/sec. This corresponds to a 20 to 39% proximal right ICA stenosis. Normal systolic velocities are noted in the proximal right external carotid artery. There is antegrade flow in the right vertebral artery. The peak systolic velocity in the proximal left internal carotid artery is 60 cm/sec. This corresponds to a 20 to 39% proximal left ICA stenosis. Normal systolic velocities are noted in the proximal left external carotid artery. There is antegrade flow in the left vertebral artery. IMPRESSION: 1. Bilateral 20-39% proximal ICA stenoses. 2. Antegrade flow in both vertebral arteries.
[2017-03-27 18:29] VITALS: BP 152/89; PULSE 71; TEMP 98.3
--- NOTE | 2017-03-27 23:41 | PN ---
DATE: SUBJECTIVE: The patient denies any palpitation. She reports left hip pain. PHYSICAL EXAMINATION VITAL SIGNS: Blood pressure 147/76, heart rate 67, temperature 97.4, respirations 20. HEENT: Normocephalic. CHEST: Clear. HEART: S1 and S2 regular. EXTREMITIES: No edema. LABORATORY DATA: Today's CBCs within normal limit. D-dimer is within normal limit. SMA-7 is within normal limits except for potassium 5.2. Echocardiographic study revealed normal left ventricular size, wall thickness and ejection fraction. Has mild pulmonary hypertension. ASSESSMENT: 1. Chest pain, myocardial infarction is ruled out. 2. Hypertension. RECOMMENDATION: Continue current medical management, consult the patient for an outpatient exercise stress test. Sandor Morton MD
== END 2017-03-27 19:11 | disposition home or self-care (01) | DRG 143 ==
LOC: ED 17:30 → ERH 21:33 → 2RNO 22:38 → OBSVTOIN 03-26 14:51
PROVIDERS: ADMIT Internal Medicine; ATTEND Hospitalist
DX: R07.2 Precordial pain (principal); I10 Essential (primary) hypertension; G43.109 Migraine with aura, not intractable, without status migrainosus; R00.2 Palpitations; R20.2 Paresthesia of skin; R06.02 Shortness of breath; D64.9 Anemia, unspecified; M79.605 Pain in left leg; E66.9 Obesity, unspecified; Z68.33 Body mass index [BMI] 33.0-33.9, adult